=== PATIENT | female | born 1960 | race Caucasian/White ===

== ENCOUNTER → 2018-11-09 12:05 | Outpatient (CLI) | payer OTHER, SELFPAY ==
--- NOTE | 2018-11-09 12:11 | XR_ITS ---
XR chest 2V HISTORY: Smoker ITS.REASON: x ORDERING PHYSICIAN: Luz Westbrook APRN PATIENT AGE: 58 years COMPARISON: None FINDINGS: The cardiomediastinal silhouette and pulmonary vascularity are within normal limits. Linear density noted in the right perihilar region suggesting an area of atelectasis or fibrosis versus unusual appearing 10 mm opacity is present in the right upper lung zone overlying the first rib anteriorly and may been be due to prominence of the first rib in the versus developing nodule. The remaining lungs are clear. COPD. Degenerative changes thoracic spine. IMPRESSION: Possible right upper lobe nodule versus prominent rib end which may be further evaluated with CT if clinically desired. COPD with atelectatic or from chronic changes in the right perihilar region
== END ==
PROVIDERS: PCP Family Medicine; Visit Provider Nurse Practitioner Family
DX: R06.02 Shortness of breath (principal); F17.200 Nicotine dependence, unspecified, uncomplicated
CPT/HCPCS: 71046

== ENCOUNTER → 2018-11-30 09:56 | Outpatient (CLI) | payer OTHER, SELFPAY ==
[2018-11-30 10:25] LABS: Blood Urea Nitrogen 16 mg/dL (7-18); Creatinine,Serum 0.76 mg/dL (0.55-1.02); Estimated Glomerular Filt Rate 78 ml/min (>60); GFR (African American) 94 ML/MIN (>60)
--- NOTE | 2018-11-30 10:31 | CT_ITS ---
CT chest w con HISTORY: ITS.REASON: z ORDERING PHYSICIAN: Bird Weiner MD PATIENT AGE: 58 years COMPARISON: None TECHNIQUE: Axial images obtained following the administration of 75 mL of Optiray 350 . Sagittal, and coronal reformatted images are also generated and reviewed. All CT scans at the facility use one or more dose reduction, viz: automated exposure control, ma/kV adjustment per patient size (including targeted exams where dose is matched to indication, i.e. head), or iterative reconstruction technique. FINDINGS: PULMONARY ARTERIES:No pulmonary embolus evident. AORTA:There is no acute process involving the thoracic aorta except for a few calcified plaques. There is also calcified and soft plaque causing mild narrowing at the proximal left subclavian artery just distal to the origin. LUNGS:There is a superior segment right lower lobe noncalcified nodule measuring 6.3 mm. In this area there is another 3 mm noncalcified nodule. There appears to be several subtle 2 mm noncalcified nodules in the left apex along with a short linear soft tissue density. There is borderline very mild hazy indistinct density at the subpleural anterior segment of the right upper lobe close to the minor fissure. PLEURAL SPACES:No significant effusion. No evidence of pneumothorax. HEART:Unremarkable. Normal heart size. No significant pericardial effusion. MEDIASTINAL AND HILAR STRUCTURES:There are a few small nonspecific noncalcified cyst on the left lymph nodes. Hilar areas appear normal. BONY STRUCTURES:No acute bony abnormalities apparent LYMPH NODES:No enlarged lymph nodes evident UPPER ABDOMEN:Unremarkable IMPRESSION: Multiple noncalcified lung nodules largest measuring 6.3 mm in right lower lobe. Because of size these may be difficult to evaluate with a PET/CT scan therefore consider 3 month follow-up CT chest to evaluate for change. Area of mild atelectasis in the anterior segment right upper lobe. Atherosclerotic disease with mild soft and hard plaque at the proximal left subclavian artery.
[2018-11-30 12:36] LABS: Alanine Aminotransferase 32 U/L (12-78); Albumin Level 3.4 gm/dL (3.4-5.0); Alkaline Phosphatase 78 U/L (46-116); Aspartate Amino Transferase 23 U/L (15-37); Bilirubin,Direct 0.1 mg/dL (0.0-0.2); Bilirubin,Indirect 0.3 mg/dL (0.0-0.9); Bilirubin,Total 0.4 mg/dL (0.2-1.0); Chol/HDL Ratio 1.9 (1-3.5); Cholesterol 142 mg/dL (140-200); HDL Cholesterol 74 mg/dL (29-89); LDL Cholesterol 53 mg/dL (0-130); Total Protein,Serum 6.4 gm/dL (6.4-8.2); Triglycerides 73 mg/dL (30-200); VLDL Cholesterol 15 mg/dL (0-40)
== END ==
PROVIDERS: PCP Nurse Practitioner Family; Visit Provider Internal Medicine
DX: R91.1 Solitary pulmonary nodule (principal); I11.9 Hypertensive heart disease without heart failure; E78.5 Hyperlipidemia, unspecified
CPT/HCPCS: 36415; 71260; 80061; 80076; 82565; 84520

== ENCOUNTER → 2020-01-28 14:41 | Outpatient (CLI) | payer BC, SELFPAY ==
[2020-01-28 14:48] LABS: Basophils # 0.1 K/mm3 (0-0.2); Basophils % 0.7 % (0.1-2.0); Eosinophils # 0.1 K/mm3 (0.0-0.4); Eosinophils % 1.4 % (0.1-12.0); Hematocrit 43.3 % (37.0-47.0); Hemoglobin 14.5 g/dL (12.2-16.2); Lymphocytes # 2.4 K/mm3 (0.7-4.5); Lymphocytes % 29.9 % (10-50); Mean Corpuscular HGB Conc 33.5 g/dL (31.8-35.4); Mean Corpuscular Hemoglobin 31.9 pg (27.0-31.2); Mean Corpuscular Volume 95.3 fl (81-99); Mean Platelet Volume 9.2 fl (7.4-10.4); Monocytes # 0.4 K/mm3 (0.1-1.0); Monocytes % 4.8 % (1.7-9.3); Neutrophils # 5.1 K/mm3 (1.8-7.8); Neutrophils % 63.1 % (37.0-80.0); Platelet Count 194 K/mm3 (142-424); Red Blood Count 4.54 M/mm3 (4.20-5.40); Red Cell Distribution Width 13.6 % (11.5-17.5)
[2020-01-28 14:50] LABS: Chloride 105 mmol/L (98-107); Sodium 141 mmol/L (136-145)
[2020-01-28 14:51] LABS: Potassium 4.4 mmoL/L (3.5-5.1)
[2020-01-28 14:53] LABS: Alanine Aminotransferase 21 U/L (12-78); Alkaline Phosphatase 67 U/L (38-126); Anion Gap 11.4 mEq/L (5-15); Aspartate Amino Transferase 31 U/L (14-36); Bilirubin,Total 0.5 mg/dl (0.2-1.3); Blood Urea Nitrogen 16 mg/dl (7-17); Carbon Dioxide 29 mmol/L (22.0-30.0); Cholesterol 155 mg/dl (140-200); Estimated Glomerular Filt Rate 102 ml/min (>60); GFR (African American) 123 ML/MIN (>60); Triglycerides 107 mg/dl (30-150); VLDL Cholesterol 21 mg/dL (0-40)
[2020-01-28 14:54] LABS: Albumin Level 4.2 g/dl (3.5-5.0); Albumin/Globulin Ratio 1.6 (1.1-1.8); Chol/HDL Ratio 1.6 (1-3.5); Globulin 2.7 g/dL (1.3-3.2); Glucose 94 mg/dl (74-100); HDL Cholesterol 97 mg/dl (40-60); Total Protein,Serum 6.9 g/dl (6.3-8.2)
[2020-01-28 15:06] LABS: Direct LDL Cholesterol 30.21 mg/dL (100-129)
== END ==
PROVIDERS: Visit Provider Family Medicine
DX: E78.5 Hyperlipidemia, unspecified (principal); I10 Essential (primary) hypertension
CPT/HCPCS: 80053; 80061; 85025

== ENCOUNTER → 2021-02-09 11:49 | Outpatient (CLI) | payer BC, SELFPAY ==
--- NOTE | 2021-02-09 11:59 | CT_ITS ---
PROCEDURE: CT CHEST W CON CLINCAL INDICATION: lung nodules COMPARISON: CT CHESTW CT chest w con from 11/30/2018 TECHNIQUE: IV Contrast: 75ml Isovue 370 Axial images obtained with sagittal and coronal reformats. All CT scans at the facility use one or more dose reduction, viz: automated exposure control, ma/kV adjustment per patient size (including targeted exams where dose is matched to indication, i.e. head), or iterative reconstruction technique. FINDINGS: HEART AND MEDIASTINAL STRUCTURES: Cardiac size normal. There is excellent vascular opacification there is no evidence of pulmonary emboli. LUNGS AND PLEURAL SPACES: The lung enriquez are well expanded. There is a stable small benign-appearing noncalcified nodule right upper lobe seen on image 22 axial sequence. This is stable unchanged from the previous exam. Is a tiny noncalcified nodule subpleural location superior segment right lower lobe which is stable or actually appears slightly smaller than the previous exam. The dominant 6.3 mm noncalcified nodule subpleural location superior segment right lower lobe seen on the previous exam is not seen on today's exam. There are no additional or new nodules seen since the previous exam. BONY STRUCTURES: There are mild multilevel degenerate changes of the thoracic spine and upper lumbar spine. UPPER ABDOMEN: Unremarkable. ADDITIONAL FINDINGS: No other significant abnormalities. IMPRESSION: Interval resolution of the dominant noncalcified nodule superior segment right lower lobe, persistent small nodule right upper lobe, suggest consideration of another follow-up CT scan chest in 1 year for continuing evaluation Dictated by: Dr. Jeff Resendiz MD 02/09/2021 13:20 Dr. Jeff Resendiz MD in [facility] 02/09/2021 13:20
[2021-02-09 12:05] LABS: Chloride 107 mmol/L (98-107); Potassium 4.1 mmoL/L (3.5-5.1); Sodium 142 mmol/L (136-145)
[2021-02-09 12:08] LABS: Anion Gap 9.1 mEq/L (5-15); Blood Urea Nitrogen 16 mg/dl (7-17); Carbon Dioxide 30 mmol/L (22.0-30.0); Estimated Glomerular Filt Rate 102 ml/min (>60); GFR (African American) 123 ML/MIN (>60); Glucose 107 mg/dl (74-100)
== END ==
PROVIDERS: Visit Provider Family Medicine
DX: Z01.818 Encounter for other preprocedural examination (principal); R91.8 Other nonspecific abnormal finding of lung field
CPT/HCPCS: 36415; 71260; 80048; Q9967

== ENCOUNTER → 2023-04-18 23:38 | Outpatient (CLI) | payer BC, SELFPAY ==
[2023-04-18 19:37] LABS: Basophils # 0.1 K/mm3 (0-0.2); Basophils % 0.8 % (0.1-2.0); Eosinophils # 0.2 K/mm3 (0.0-0.4); Eosinophils % 2.8 % (0.1-12.0); Hematocrit 41.9 % (37.0-47.0); Hemoglobin 14.1 g/dL (12.2-16.2); Lymphocytes # 2.6 K/mm3 (0.7-4.5); Lymphocytes % 31.8 % (10-50); Mean Corpuscular HGB Conc 33.5 g/dL (31.8-35.4); Mean Corpuscular Hemoglobin 32.3 pg (27.0-31.2); Mean Corpuscular Volume 96.4 fl (81-99); Mean Platelet Volume 9.8 fl (7.4-10.4); Monocytes # 0.5 K/mm3 (0.1-1.0); Monocytes % 6.5 % (1.7-9.3); Neutrophils # 4.8 K/mm3 (1.8-7.8); Neutrophils % 58.2 % (37.0-80.0); Platelet Count 174 K/mm3 (142-424); Red Blood Count 4.35 M/mm3 (4.20-5.40); Red Cell Distribution Width 13.3 % (11.5-17.5); White Blood Count 8.3 K/mm3 (4.8-10.8)
[2023-04-18 20:55] LABS: Alanine Aminotransferase 22 U/L (12-78); Albumin/Globulin Ratio 1.5 (1.1-1.8); Alkaline Phosphatase 76 U/L (38-126); Anion Gap 9.6 mEq/L (5-15); Aspartate Amino Transferase 33 U/L (14-36); Bilirubin,Total 0.3 mg/dl (0.2-1.3); Blood Urea Nitrogen 16 mg/dl (7-17); Calcium 9.2 mg/dl (8.4-10.2); Carbon Dioxide 30 mmol/L (22.0-30.0); Chloride 104 mmol/L (98-107); Chol/HDL Ratio 1.9 (1-3.5); Cholesterol 146 mg/dl (140-200); Estimated Glomerular Filt Rate 72 ml/min (>60); GFR (African American) 88 ML/MIN (>60); Globulin 2.6 g/dL (1.3-3.2); Glucose 87 mg/dl (74-100); HDL Cholesterol 77 mg/dl (40-60); Potassium 4.6 mmoL/L (3.5-5.1); Sodium 139 mmol/L (136-145); Total Protein,Serum 6.6 g/dl (6.3-8.2); Triglycerides 104 mg/dl (30-150); VLDL Cholesterol 21 mg/dL (0-40)
[2023-04-18 21:17] LABS: Direct LDL Cholesterol 39.19 mg/dL (100-129)
== END ==
LOC: LAB.DROPOF 23:39
PROVIDERS: PCP Family Medicine; Visit Provider Family Medicine
DX: M54.9 Dorsalgia, unspecified (principal)
CPT/HCPCS: 80053; 80061; 85025